=== PATIENT | male | born 1970 | race Caucasian/White ===

== ENCOUNTER 2016-11-26 12:47 | Inpatient (IN) | payer OTHER ==
[~2016-11-26] VITALS: Ht 175.3 cm; Wt 74.4 kg
[~2016-11-26 12:47] MED LIST: HYDR-4452 PO; LORA1TAB7 PO; PHEN-1438 PO
[2016-11-26 12:55] VITALS: BP 128/79
[2016-11-26] MEDS ORDERED: ASPIRIN 81 MG TAB.CHEW PO ONE (13:05)
[2016-11-26 13:21] LABS: BASOPHILS # (AUTO) 0.2 K/uL (0.00-0.22); BASOPHILS % (AUTO) 1.9 % (0.0-2.0); EOSINOPHILS # (AUTO) 0.1 K/uL (0-0.4); EOSINOPHILS % (AUTO) 1.4 % (0.0-4.0); HEMATOCRIT 45.6 % (36-52); HEMOGLOBIN 15.1 g/dL (12.0-18.0); LYMPHOCYTES # (AUTO) 1.8 K/uL (2.0-11.5); LYMPHOCYTES % (AUTO) 22.3 % (20.5-51.1); MEAN CORPUSCULAR HEMOGLOBIN 31 pg (27-31); MEAN CORPUSCULAR HGB CONC 33 g/dL (33-37); MEAN CORPUSCULAR VOLUME 94 fL (80-94); MONOCYTES # (AUTO) 0.4 K/uL (0.8-1.0); MONOCYTES % (AUTO) 4.5 % (1.7-9.3); NEUTROPHILS # (AUTO) 5.4 K/uL (1.8-7.7); NEUTROPHILS % (AUTO) 69.9 % (42.2-75.2); PLATELET COUNT (AUTO) 180 K/uL (140-450); RED BLOOD CELL COUNT(AUTO) 4.87 MIL/uL (4.20-6.10); RED CELL DISTRIBUTION WIDTH 12.7 % (11.6-13.7); WHITE BLOOD COUNT (AUTO) 7.9 K/uL (4.8-10.8)
[2016-11-26 13:36] LABS: ALBUMIN 3.8 g/dL (3.4-5.0); ANION GAP 9.7 (8-16); CALCIUM 8.3 mg/dL (8.5-10.1); CARBON DIOXIDE 28.9 mmol/L (21-32); CREATININE 0.9 mg/dL (0.6-1.3); POTASSIUM 3.6 mmol/L (3.5-5.1); TOTAL BILIRUBIN 0.3 mg/dL (0.0-1.0)
[2016-11-26 13:39] LABS: INR 1.1 (0.8-1.2); PARTIAL THROMBOPLASTIN TIME 28.2 secs (22-35.6); PROTHROMBIN TIME 10.6 secs (10.8-13.4)
[2016-11-26] MEDS ORDERED: ONDANSETRON 4 MG/2 ML VIAL IVP PRN (15:40)
[2016-11-26] MEDS ORDERED: NACL 0.9% 1,000 ML IV SCH (15:40)
[2016-11-26] MEDS ORDERED: KETOROLAC 30 MG/ML VIAL IVP PRN (15:45)
[2016-11-26] MEDS ORDERED: ACETAMINOPHEN 650 MG/20.3 ML UDC PO PRN (15:45)
[2016-11-26 16:15] VITALS: BP 130/76
[2016-11-26] MEDS ORDERED: INFLUENZA VIRUS VACCINE QUAD 0.5 ML SYR IMVAC PRN (16:40)
[2016-11-26 20:00] VITALS: BP 111/73
[2016-11-26] MEDS ORDERED: SIMVASTATIN 20 MG TAB PO SCH (21:00)
[2016-11-26] MEDS: NACL 0.9% 1,000 ML IV SCH (21:24)
[2016-11-26] MEDS ORDERED: PHENobarbital 30 MG TAB PO SCH (21:30)
[2016-11-26] MEDS ORDERED: ZOLPIDEM 5 MG TAB PO PRN (22:10)
[2016-11-27] VITALS: BP 101/64
[2016-11-27 03:38] VITALS: BP 101/63
[2016-11-27 06:46] LABS: BASOPHILS # (AUTO) 0.1 K/uL (0.00-0.22); BASOPHILS % (AUTO) 1.8 % (0.0-2.0); EOSINOPHILS # (AUTO) 0.3 K/uL (0-0.4); EOSINOPHILS % (AUTO) 3.6 % (0.0-4.0); HEMATOCRIT 40.9 % (36-52); LYMPHOCYTES % (AUTO) 27.7 % (20.5-51.1); MEAN CORPUSCULAR HEMOGLOBIN 32 pg (27-31); MEAN CORPUSCULAR HGB CONC 34 g/dL (33-37); MEAN CORPUSCULAR VOLUME 94 fL (80-94); MONOCYTES # (AUTO) 0.5 K/uL (0.8-1.0); MONOCYTES % (AUTO) 7.6 % (1.7-9.3); NEUTROPHILS # (AUTO) 4.3 K/uL (1.8-7.7); NEUTROPHILS % (AUTO) 59.3 % (42.2-75.2); PLATELET COUNT (AUTO) 145 K/uL (140-450); RED BLOOD CELL COUNT(AUTO) 4.34 MIL/uL (4.20-6.10); RED CELL DISTRIBUTION WIDTH 12.6 % (11.6-13.7); WHITE BLOOD COUNT (AUTO) 7.2 K/uL (4.8-10.8)
[2016-11-27 07:16] LABS: ALBUMIN 3.2 g/dL (3.4-5.0); ANION GAP 8.7 (8-16); CALCIUM 7.8 mg/dL (8.5-10.1); CARBON DIOXIDE 28.2 mmol/L (21-32); CREATININE 0.8 mg/dL (0.6-1.3); POTASSIUM 3.9 mmol/L (3.5-5.1); TOTAL BILIRUBIN 0.5 mg/dL (0.0-1.0); TOTAL PROTEIN, SERUM 6.8 g/dL (6.4-8.2)
[2016-11-27 07:41] VITALS: BP 114/72
[2016-11-27] MEDS ORDERED: ENOXAPARIN 40 MG/0.4 ML SYR SUBQ SCH (09:00)
[2016-11-27] MEDS ORDERED: ASPIRIN 81 MG TAB.CHEW PO ONE (09:00)
[2016-11-27] MEDS ORDERED: METOPROLOL 25 MG TAB PO SCH (09:00)
[2016-11-27] MEDS: NACL 0.9% 1,000 ML IV SCH (09:20)
[2016-11-27 12:00] VITALS: BP 118/80
[2016-11-27] MEDS ORDERED: REGADENOSON 0.4 MG/5 ML SYR IV SCH (12:45)
[2016-11-27 16:00] VITALS: BP 139/87
[2016-11-27] MEDS ORDERED: PHENobarbital 30 MG TAB PO SCH (21:00)
== END 2016-11-27 16:45 | disposition left against medical advice (07) | DRG 203 ==
LOC: MED 12:47 → MTU 15:41
PROVIDERS: ADMIT Internal Medicine; ATTEND Internal Medicine
DX: R07.89 Other chest pain (principal); R56.9 Unspecified convulsions; G89.29 Other chronic pain; M54.2 Cervicalgia; I10 Essential (primary) hypertension; K21.9 Gastro-esophageal reflux disease without esophagitis; Z53.21 Procedure and treatment not carried out due to patient leaving prior to being seen by health care provider; F17.210 Nicotine dependence, cigarettes, uncomplicated; Z86.73 Personal history of transient ischemic attack (TIA), and cerebral infarction without residual deficits; Z88.6 Allergy status to analgesic agent; Z88.4 Allergy status to anesthetic agent; Z86.69 Personal history of other diseases of the nervous system and sense organs; Z98.890 Other specified postprocedural states
CPT/HCPCS: 36415; 71010; 80053; 83880; 84484; 85025; 85610; 85730; 87081; 93005; 93017; 99285; A9500; A9502; J1650; J2785; J7030

== ENCOUNTER 2016-12-12 14:45 | Emergency (ER) | payer OTHER ==
[~2016-12-12] VITALS: Ht 175.3 cm; Wt 75.3 kg
[2016-12-12 14:52] VITALS: BP 137/85
--- NOTE | 2016-12-12 15:43 | NUR ---
Dr. Menchaca evaluating patient in triage.
--- NOTE | 2016-12-12 15:54 | NUR ---
C/O BUG BITE TO RIGHT SHOULDER, NO OTHER COMPLAINTS AT THIS TIME, NO VISIBLE SIGNS OF DISTRESS NOTED, BREATHING EVEN AND UNLABORED, AAOX4, AMBULATORY, GAIT STEADY
[2016-12-12 15:57] VITALS: BP 137/85
--- NOTE | 2016-12-12 15:57 | NUR ---
Patient discharged with v/s stable. Written and verbal after care instructions given and explained. Patient alert, oriented and verbalized understanding of instructions. Ambulatory with steady gait. All questions addressed prior to discharge. ID band removed. Patient advised to follow up with PMD. Rx of BACTRIM AND TRAMADOL given. Patient educated on indication of medication including possible reaction and side effects. Opportunity to ask questions provided and answered.
== END 2016-12-12 15:43 | disposition home or self-care (01) ==
LOC: MED 14:45
DX: L03.113 Cellulitis of right upper limb (principal); Z86.73 Personal history of transient ischemic attack (TIA), and cerebral infarction without residual deficits; Z88.5 Allergy status to narcotic agent; Z88.6 Allergy status to analgesic agent
CPT/HCPCS: 99283

== ENCOUNTER 2016-12-24 16:42 | Emergency (ER) | payer OTHER ==
[~2016-12-24] VITALS: Ht 175.3 cm; Wt 73.5 kg
[2016-12-24 16:53] VITALS: BP 118/76
--- NOTE | 2016-12-24 19:24 | NUR ---
TO ER OF1
--- NOTE | 2016-12-24 19:35 | NUR ---
46 Y/O M W/C/O MED REFILL ON PHENPBARBITAL AND NORCO. PER PT NO PMD AT THE MOMENT. ER MD NOTIFIED. NO S/S OF DISTRESS NOTED AT THE MOMENT.
--- NOTE | 2016-12-24 19:46 | NUR ---
Patient being evaluated by physician.
[2016-12-24 20:05] VITALS: BP 128/77
--- NOTE | 2016-12-24 20:05 | NUR ---
Patient discharged with v/s stable. Written and verbal after care instructions given and explained. Patient alert, oriented and verbalized understanding of instructions. Ambulatory with steady gait. All questions addressed prior to discharge. ID band removed. Patient advised to follow up with PMD. Rx of phenobarbitol given. Patient educated on indication of medication including possible reaction and side effects. Opportunity to ask questions provided and answered.
== END 2016-12-24 20:05 | disposition home or self-care (01) ==
LOC: MED 16:42
DX: Z76.0 Encounter for issue of repeat prescription (principal); G89.29 Other chronic pain; M54.2 Cervicalgia; Z86.73 Personal history of transient ischemic attack (TIA), and cerebral infarction without residual deficits; Z88.5 Allergy status to narcotic agent
CPT/HCPCS: 99283

== ENCOUNTER 2017-01-16 20:00 | Emergency (ER) | payer OTHER ==
[~2017-01-16] VITALS: Ht 175.3 cm; Wt 73.5 kg
[~2017-01-16 20:00] MED LIST changes: -HYDR-4452 PO; -LORA1TAB7 PO; +LORAZEPAM1 M1 PO; +NORCO 10/325 MG1 TAB PO; -PHEN-1438 PO; +PHENOBARBITAL30 M1; +PHENOBARBITAL30 M1 PO; +PHENOBARBITAL30 MG PO; +VICODIN 500 MG-1 TA1 PO
--- NOTE | 2017-01-16 20:11 | NUR ---
Dr. Menchaca evaluating patient
[2017-01-16 20:12] VITALS: BP 150/88
--- NOTE | 2017-01-16 21:50 | NUR ---
PT TAKEN TO BED 5 FROM RADIOLOGY
[2017-01-16 22:35] VITALS: BP 150/88
--- NOTE | 2017-01-16 22:35 | NUR ---
Patient discharged with v/s stable. Written and verbal after care instructions given and explained. Patient alert, oriented and verbalized understanding of instructions. Ambulatory with to car. All questions addressed prior to discharge. ID band removed. Patient advised to follow up with PMD. Rx of MOTRIN AND ROBAXIN given. Patient educated on indication of medication including possible reaction and side effects. Opportunity to ask questions provided and answered.
== END 2017-01-16 22:35 | disposition home or self-care (01) ==
LOC: MED 20:12
DX: S16.1XXA Strain of muscle, fascia and tendon at neck level, initial encounter (principal); S09.90XA Unspecified injury of head, initial encounter; R03.0 Elevated blood-pressure reading, without diagnosis of hypertension; M54.9 Dorsalgia, unspecified; Z86.73 Personal history of transient ischemic attack (TIA), and cerebral infarction without residual deficits; Z88.5 Allergy status to narcotic agent; Y04.2XXA Assault by strike against or bumped into by another person, initial encounter; Y93.89 Activity, other specified; Y92.89 Other specified places as the place of occurrence of the external cause; Y99.8 Other external cause status

== ENCOUNTER 2017-02-03 22:52 | Emergency (ER) | payer OTHER ==
[~2017-02-03] VITALS: Ht 175.3 cm; Wt 75.3 kg
[~2017-02-03 22:52] MED LIST changes: +HYDR-4452 PO; -LORAZEPAM1 M1 PO; -NORCO 10/325 MG1 TAB PO; +PHEN-1438 PO; -PHENOBARBITAL30 M1; -PHENOBARBITAL30 M1 PO; -PHENOBARBITAL30 MG PO; -VICODIN 500 MG-1 TA1 PO
[2017-02-03 22:56] VITALS: BP 141/90
--- NOTE | 2017-02-04 00:46 | NUR ---
TO ER OF2
--- NOTE | 2017-02-04 00:59 | NUR ---
Patient being evaluated by physician.
[2017-02-04 01:38] LABS: AMPHETAMINE, URINE NEG. ng/ml (NEG <=1000); BARBITURATE, URINE POS. ng/ml (NEG <=200); BENZODIAZEPINE, URINE NEG. ng/mL (NEG <=200); CANNABINOID, URINE POS. ng/mL (NEG <=50); COCAINE, URINE NEG. ng/mL (NEG <=300); OPIATE, URINE NEG. ng/mL (NEG <=2000); PHENCYCLIDINE SCREEN,URINE NEG. ng/mL (NEG <=25)
[2017-02-04 02:07] VITALS: BP 127/76
--- NOTE | 2017-02-04 02:07 | NUR ---
Patient discharged with v/s stable. Written and verbal after care instructions given and explained. Patient alert, oriented and verbalized understanding of instructions. Ambulatory with steady gait. All questions addressed prior to discharge. ID band removed. Patient advised to follow up with PMD. Rx of Phenobarbitol and Ibuprofen given. Patient educated on indication of medication including possible reaction and side effects. Opportunity to ask questions provided and answered.
== END 2017-02-04 02:07 | disposition home or self-care (01) ==
LOC: MED 22:52
DX: Z76.0 Encounter for issue of repeat prescription (principal); G40.909 Epilepsy, unspecified, not intractable, without status epilepticus; R03.0 Elevated blood-pressure reading, without diagnosis of hypertension; I63.9 Cerebral infarction, unspecified; Z88.6 Allergy status to analgesic agent
CPT/HCPCS: 80305; 99283

== ENCOUNTER 2017-06-05 14:54 | Emergency (ER) | payer OTHER ==
[~2017-06-05] VITALS: Ht 175.3 cm; Wt 78.2 kg
[~2017-06-05 14:54] MED LIST changes: +ACET-787 PO; -HYDR-4452 PO
[2017-06-05 15:02] VITALS: BP 124/81
--- NOTE | 2017-06-05 17:24 | NUR ---
PATIENT TO BED 5 AT THIS TIME.
--- NOTE | 2017-06-05 17:34 | NUR ---
PATIENT PRESENTS TO ED WITH 47M BIB SELF C/O MEDICATION REFILL. PT STATES NEEDS PHENOBARBITAL 30MG AND HYDROCODONE 325MG FOR PAIN. HX: STROKE (1987), LEFT KNEE CAP BROKEN (2010), GASTRITIS DENIES N/V/D; SKIN IS PINK/WARM/DRY; AAOX4 WITH EVEN AND STEADY GAIT; LUNGS CLEAR BL; HR EVEN AND REGULAR; PT DENIES ANY FEVER, CP, SOB, OR COUGH AT THIS TIME; PATIENT STATES PAIN OF 4/10 AT THIS TIME; VSS; PATIENT POSITIONED FOR COMFORT; HOB ELEVATED; BEDRAILS UP X2; BED DOWN. ER MD MADE AWARE OF PT STATUS.
--- NOTE | 2017-06-05 18:07 | NUR ---
AAO PT BEING EVALUATED BY DR THOMSON
[2017-06-05 18:47] VITALS: BP 138/93
--- NOTE | 2017-06-05 18:47 | NUR ---
Patient discharged with v/s stable. Written and verbal after care instructions given and explained. Patient alert, oriented and verbalized understanding of instructions. Ambulatory with steady gait. All questions addressed prior to discharge. ID band removed. Patient advised to follow up with PMD. Rx of PRILOSEC, NORCO, BENADRYL, PHENOBARBITAL given. Patient educated on indication of medication including possible reaction and side effects. Opportunity to ask questions provided and answered.
== END 2017-06-05 18:47 | disposition home or self-care (01) ==
LOC: MED 14:54
DX: Z76.0 Encounter for issue of repeat prescription (principal); R56.9 Unspecified convulsions; F17.200 Nicotine dependence, unspecified, uncomplicated; M54.2 Cervicalgia; Z88.5 Allergy status to narcotic agent; Z86.73 Personal history of transient ischemic attack (TIA), and cerebral infarction without residual deficits
CPT/HCPCS: 99283

== ENCOUNTER 2017-09-17 16:43 | Emergency (ER) | payer OTHER ==
[~2017-09-17] VITALS: Ht 175.3 cm; Wt 87.1 kg
[2017-09-17 16:49] VITALS: BP 117/86
--- NOTE | 2017-09-17 17:00 | NUR ---
47M bib with c/o medication refill for phenobarbital and norco. Pt sts attempted to set up apt with PMD but unable to obtain apt. Pt is aox4 with steady gait. RR are even and unlabored. Skin is warm/pink/dry. Pt with no other complaints. ER MD Burris by bedside examining pt. VSS. NAD. will continue to monitor.
--- NOTE | 2017-09-17 17:15 | NUR ---
Pt stated "I want my pain meds...I don't need your paperwork...I'm leaving...I refuse to sign"; Pt left without discharge paperwork or obtaining vital signs. Pt left aox4 with steady gait. RR are even and unlabored.
== END 2017-09-17 17:15 | disposition home or self-care (01) ==
LOC: MED 16:43
DX: Z76.0 Encounter for issue of repeat prescription (principal); Z86.73 Personal history of transient ischemic attack (TIA), and cerebral infarction without residual deficits; Z88.5 Allergy status to narcotic agent
CPT/HCPCS: 99283

== ENCOUNTER 2017-12-25 15:01 | Emergency (ER) | payer OTHER ==
[~2017-12-25] VITALS: Ht 175.3 cm; Wt 70.3 kg
[2017-12-25 15:04] VITALS: BP 128/83
[2017-12-25 15:46] VITALS: BP 121/78
== END 2017-12-25 15:46 | disposition home or self-care (01) ==
LOC: MED 15:01
DX: M54.5 Low back pain (principal); K21.9 Gastro-esophageal reflux disease without esophagitis; F17.210 Nicotine dependence, cigarettes, uncomplicated; Z86.73 Personal history of transient ischemic attack (TIA), and cerebral infarction without residual deficits; Z79.899 Other long term (current) drug therapy; Z88.5 Allergy status to narcotic agent; Z90.89 Acquired absence of other organs; Z76.0 Encounter for issue of repeat prescription
CPT/HCPCS: 99283

== ENCOUNTER 2020-05-20 12:11 | Emergency (ER) | payer OTHER ==
[~2020-05-20] VITALS: Ht 175.3 cm; Wt 65.8 kg
[~2020-05-20 12:11] MED LIST changes: -ACET-787 PO; +HYDR-5191 PO
[2020-05-20 12:27] VITALS: BP 114/76
--- NOTE | 2020-05-20 12:30 | NUR ---
Pt ambulated to bed 3.
--- NOTE | 2020-05-20 12:35 | NUR ---
Pt c/o right knee pain with erythema, edema, and itchiness s/p bug bite x 3 days ago. Pt reports he had chills this morning and he fell 4 days ago and injuried his knees. Four punctured wounds with yellowish exudates seen on the bug bite area on the right knee. pt is ambulatory with steady gait.
[2020-05-20] MEDS ORDERED: NEOMYCIN/POLYMYXIN/BACITRACIN 0.9 GM/1 PKT TP ONE ×2 (12:53→13:55)
[2020-05-20] MEDS ORDERED: SULFAMETH/TRIMETH DS 800/160MG 1 TAB PO ONE (12:55)
[2020-05-20] MEDS ORDERED: NEOMYCIN/POLYMYXIN/BACITRACIN OPTH OINT 3.5 GM TUBE OP SCH (12:55)
[2020-05-20] MEDS ORDERED: cephALEXin 500 MG CAP PO ONE (12:55)
[2020-05-20] MEDS ORDERED: IBUPROFEN 800 MG TAB PO ONE (12:55)
[2020-05-20 13:15] VITALS: BP 112/75
--- NOTE | 2020-05-20 13:15 | NUR ---
Patient discharged with v/s stable. Written and verbal after care instructions given and explained. Patient alert, oriented and verbalized understanding of instructions. Ambulatory with steady gait. All questions addressed prior to discharge. ID band removed. Patient advised to follow up with PMD. Rx of Motrin, Bactrim, Keflex given. Patient educated on indication of medication including possible reaction and side effects. Opportunity to ask questions provided and answered.
== END 2020-05-20 13:15 | disposition home or self-care (01) ==
LOC: MED 12:11
DX: L03.115 Cellulitis of right lower limb (principal); Z88.5 Allergy status to narcotic agent; Z59.0 Homelessness; Z79.899 Other long term (current) drug therapy; Z86.73 Personal history of transient ischemic attack (TIA), and cerebral infarction without residual deficits; Z90.49 Acquired absence of other specified parts of digestive tract
CPT/HCPCS: 99284